=== PATIENT | female | born 1955 ===

== ENCOUNTER 2023-05-08 22:08 | Emergency (ER) | payer MEDICARE, OTHER ==
[2023-05-08] MEDS ORDERED: traMADol 50 MG Tab PO ONE (22:54)
[2023-05-08] MEDS ORDERED: traMADol 50 MG Tab ONE (23:00)
== END 2023-05-08 23:15 | disposition home or self-care (01) ==
LOC: LB.ED 22:08
DX: S52.002A Unspecified fracture of upper end of left ulna, initial encounter for closed fracture (principal); E78.00 Pure hypercholesterolemia, unspecified; I10 Essential (primary) hypertension; W10.1XXA Fall (on)(from) sidewalk curb, initial encounter
CPT/HCPCS: 29105; 73090-LT; 99283; A9270-GY